=== PATIENT | female | born 1985 | race Caucasian/White ===

== ENCOUNTER → 2016-11-10 | Outpatient (CLI) | payer BC, SELFPAY ==
--- NOTE | 2016-11-10 09:50 | US ---
Procedure: Right upper quadrant ultrasound Exam Date: 11/10/2016 8:40 AM CDT Ordering Provider: WILLIAM PINEDA Clinical Indication: EPIGASTRIC PAIN Comparison: None Technique: Real-time ultrasonography was obtained over the right upper quadrant and service liaison representative images were recorded. Findings: There are no gallstones within the gallbladder lumen. There is no gallbladder wall thickening or pericholecystic fluid. Negative sonographic Grace sign. The gallbladder is normal in size and contour. The extrahepatic common duct is normal in size measuring 3.0 mm. The liver is normal in size and contour. There is normal echogenicity throughout the liver. There is no hepatic mass. There is no intrahepatic ductal dilatation. Visualized pancreas is unremarkable. There is no ascites. Evaluation of the right kidney demonstrates no hydronephrosis. Impression: Negative right upper quadrant ultrasound. Electronically signed by: Fran Dobbins MD 11/10/2016 9:50 AM CDT
== END | disposition home or self-care (01) ==
LOC: US 08:29
DX: R10.13 Epigastric pain (principal)

== ENCOUNTER → 2017-10-13 | Outpatient (CLI) | payer OTHER | LOC: GMAJ 11:42 | PROVIDERS: ATTEND Family Medicine | DX: Z00.00 Encounter for general adult medical examination without abnormal findings (principal); E11.9 Type 2 diabetes mellitus without complications; E78.2 Mixed hyperlipidemia ==

== ENCOUNTER → 2019-02-22 | Outpatient (CLI) | payer OTHER | LOC: GMAJ 10:26 | PROVIDERS: ATTEND Family Medicine | DX: Z00.00 Encounter for general adult medical examination without abnormal findings (principal) ==